=== PATIENT | male | born 1965 | race Caucasian/White ===

== ENCOUNTER 2020-10-30 08:15 | Outpatient (CLI) | payer OTHER, SELFPAY | END 2020-10-30 08:16 | disposition home or self-care (01) | LOC: ANHCOVIDVC 08:15 | PROVIDERS: PCP Internal Medicine | DX: Z23 Encounter for immunization (principal) | CPT/HCPCS: 0001A; 91300 ==

== ENCOUNTER 2020-11-20 08:14 | Outpatient (CLI) | payer OTHER, SELFPAY | END 2020-11-20 08:15 | LOC: ANHCOVIDVC 08:14 | PROVIDERS: PCP Internal Medicine | DX: Z23 Encounter for immunization (principal) | CPT/HCPCS: 0002A; 91300 ==

== ENCOUNTER 2021-05-16 02:29 | Day surgery (SDC) | payer OTHER, SELFPAY ==
[2021-05-02 14:47] VITALS: BMI 27.3
[2021-05-16 09:49] VITALS: BP 118/100; PULSE 56; RESP 14; TEMP 36; O2SAT 99; BMI 26.2
--- NOTE | 2021-05-16 09:56 | WPDGICN ---
Assessment and Plan Assessment and plan (1) Encounter for screening colonoscopy: Code(s): Z12.11 - Encounter for screening for malignant neoplasm of colon Status: Acute Assessment and Plan: Patient presents today for screening colonoscopy. He appears to be at average risk for colon polyps. GI Consult Note Consult date/time: 05/16/21 09:56 HPI: Red Arreola is a 55 year old male Presents for neoplasia screening. Patient's current weight appetite bowel movements are normal. He denies abdominal pain. He has had no bleeding. Family history is noncontributory. Screening colonoscopy to be performed today. Review of Systems Review of Systems: All systems reviewed & are unremarkable except as noted in HPI and below PMFSH Social History Social History Smoking status: Former smoker Tobacco type: cigarettes Alcohol intake: former Substance use: current Substance use type: marijuana Other substance usage details: socially Living arrangements: with family Spiritual care concerns: No Meds Home Medications and Allergies Home Medications Medication Instructions Recorded Confirmed Type aspirin 81 mg PO DAILY 05/02/21 05/16/21 History atorvastatin 40 mg PO DAILY 05/02/21 05/16/21 History clopidogrel 75 mg PO DAILY 05/02/21 05/16/21 History nitroglycerin 0.4 mg SUBLINGUAL PRN PRN 05/02/21 05/16/21 History Allergies Allergy/AdvReac Type Severity Reaction Status Date / Time Contrast Media Allergy Unknown Headache Uncoded 05/16/21 09:48 Vital Signs Vital Signs - 24 hr 05/16/21 09:49 Temperature 96.8 F L Pulse Rate 56 L Respiratory Rate 14 Blood Pressure 118/100 H Pulse Oximetry 99 Exam Narrative: Physical exam reveals patient be alert. Vital signs are stable. HEENT exam is unremarkable. Patient is anicteric. Lungs are clear to auscultation and percussion. Heart is without murmur or extra sounds. Abdominal exam bowel sounds are present soft nontender with no hepatosplenomegaly. Digital external rectal exam is normal.
[2021-05-16] MEDS: LACTATED RINGERS 1,000 ML 150 ML IV CONT (09:59)
[2021-05-16 10:00] VITALS: BP 118/81
--- NOTE | 2021-05-16 10:23 | WPDANESEPPF ---
Anes - Initial Pre Proc Eval Procedure: Operation Date: 05/16/21 10:30 Proposed Procedures p Screening Colonoscopy - Francis Acosta MD Date/Time: 05/16/21 10:23 Surgeon: Francis Acosta MD Pre Op Diagnosis: neoplasm screening Z12.11 Patient Data Age: 55 Gender: M Height: 1.96 m Weight: 100.5 kg Last Vital Signs Temp 96.8 F L 05/16/21 09:49 Pulse 56 L 05/16/21 09:49 Resp 14 05/16/21 09:49 BP 118/81 05/16/21 10:00 Pulse Ox 99 05/16/21 09:49 Allergies Allergy/AdvReac Type Severity Reaction Status Date / Time Contrast Media Allergy Unknown Headache Uncoded 05/16/21 09:48 Home Medications Medication Instructions Recorded Confirmed Type aspirin 81 mg PO DAILY 05/02/21 05/16/21 History atorvastatin 40 mg PO DAILY 05/02/21 05/16/21 History clopidogrel 75 mg PO DAILY 05/02/21 05/16/21 History nitroglycerin 0.4 mg SUBLINGUAL PRN PRN 05/02/21 05/16/21 History Patient hx anesthesia problems: none Family hx anesthesia problems: none Results Review: All pre-operative results and documents have been reviewed as part of the pre-operative evaluation. [facility] Past Medical History Medical History (Updated 05/16/21 @ 10:16 by Toni Geronimo MD) Anemia CAD (coronary artery disease) Hyperlipidemia Surgical History Surgical History (Updated 05/16/21 @ 10:16 by Toni Geronimo MD) Stented coronary artery Social History Social History Smoking status: Former smoker Tobacco type: cigarettes Alcohol intake: former Substance use: current Substance use type: marijuana Other substance usage details: socially Living arrangements: with family Spiritual care concerns: No Anes - Eval Final PreProcedure Day of Procedure 05/16/21 10:23 Patient weight: normal Heart: regular rate and rhythm Airway: Mallampati scale class II Neurological: alert and oriented Last oral intake: >/= 8 hours ASA classification: III Emergent: no Anesthetic plan: proceed Anesthesia type and monitoring: general GIVS and standard monitoring Results Review: All pre-operative results and documents have been reviewed as part of the pre-operative evaluation. Informed Consent: The patient's anesthetic plan and its attendant risks and benefits were discussed with the patient/family/POA. Questions were solicited and answers provided to the satisfaction of the patient/family/POA.
[2021-05-16 10:55] VITALS: BP 86/58; PULSE 84; RESP 21; O2SAT 95
[2021-05-16 11:05] VITALS: BP 96/65; PULSE 61; RESP 16; O2SAT 97
[2021-05-16 11:15] VITALS: BP 113/80; PULSE 56; RESP 17; O2SAT 97
== END 2021-05-16 11:30 | disposition home or self-care (01) ==
PROVIDERS: PCP Nurse Practitioner Family; Visit Provider Internal Medicine Gastroenterology
PROC: 0DJD8ZZ Inspection of Lower Intestinal Tract, Via Natural or Artificial Opening Endoscopic (ICD-10-PCS; CPT 45378; principal; 2021-05-16 10:30)
DX: Z12.11 Encounter for screening for malignant neoplasm of colon (principal); K64.8 Other hemorrhoids; Z79.82 Long term (current) use of aspirin; D64.9 Anemia, unspecified; I25.10 Atherosclerotic heart disease of native coronary artery without angina pectoris; E78.5 Hyperlipidemia, unspecified; Z87.891 Personal history of nicotine dependence; F12.90 Cannabis use, unspecified, uncomplicated
CPT/HCPCS: 45378; J2001; J2704; J7120